=== PATIENT | male | born 1960 | race Caucasian/White ===

== ENCOUNTER 2024-03-12 04:11 | Emergency (ER) | payer MEDICARE ==
[2024-03-12] VITALS (11 sets, daily range): BP systolic 97–119; BP diastolic 58–76
[~2024-03-12] VITALS: Ht 175.3 cm; Wt 54.0 kg
[2024-03-12] MEDS ORDERED: oxyCODONE 5MG/ ACETAMINOPHEN 325MG TAB PO ONE (04:20)
[2024-03-12 07:01] LABS: BASO% 0.4 % (0-3); EOS% 1.2 % (0-8); HEMATOCRIT 43.6 % (39.0-50.0); HEMOGLOBIN 14.5 g/dl (14.0-18.0); IMMATURE GRANULOCYTES 0.4 % (0.0-5.0); LYMPH% 15.4 % (15-41); MEAN CELL VOLUME 99.1 fL CALC (80.0-100.0); MEAN CORPUSCULAR HGB CONC 33.3 g/dL CAL (32.0-36.0); MONO% 11.4 % (2-13); NEUT# 8.04 thou/uL (1.82-7.42); NEUT% 71.2 % (42-76); RED BLOOD COUNT 4.4 mill/uL (4.70-6.10)
[2024-03-12 07:13] LABS: ALKALINE PHOSPHATASE 65 u/l (38-126); ANION GAP 11 (6-22 (CALC)); BILIRUBIN, TOTAL 0.7 mg/dL (0.2-1.3); BUN 7 mg/dL (8-23); BUN/CREATININE RATIO 13 (12-20 (CALC)); CARBON DIOXIDE 23 mmol/l (22-30); CHLORIDE 102 mmol/l (95-108); CREATININE 0.5 mg/dL (0.7-1.3); ESTIMATED GFR 114 ML/MIN (>=90 (CALC)); POTASSIUM 4.4 mmol/l (3.5-5.1); SGOT/AST 37 u/l (19-48); SODIUM 131 mmol/l (137-146); TOTAL PROTEIN 6.4 g/dL (6.3-8.2)
[2024-03-12] MEDS ORDERED: MORPHINE SULFATE 4 MG/ML VIAL IV ONE ×2 (07:20→10:05)
[2024-03-12] MEDS ORDERED: ONDANSETRON HCl 4 MG/2 ML SDV IV ONE (07:20)
[2024-03-12 07:59] LABS: ETHYL ALCOHOL 100 mg/dl (0-30)
[2024-03-12] MEDS ORDERED: SODIUM CHLORIDE 0.9% 1,000 ML IV ONE (09:00)
== END 2024-03-12 10:16 | disposition short-term general hospital (02) ==
LOC: ED 04:11
PROVIDERS: Family Medicine
DX: S72.141A Displaced intertrochanteric fracture of right femur, initial encounter for closed fracture (principal); S00.03XA Contusion of scalp, initial encounter; W01.0XXA Fall on same level from slipping, tripping and stumbling without subsequent striking against object, initial encounter; Y92.008 Other place in unspecified non-institutional (private) residence as the place of occurrence of the external cause
CPT/HCPCS: J2405